=== PATIENT | female | born 1995 | race Caucasian/White ===

== ENCOUNTER 2017-12-05 06:00 | Day surgery (SDC) | payer BC ==
[2017-12-04 11:54] VITALS: BMI 32.9
[2017-12-05] MEDS ORDERED: Fentanyl 250 MCG/5 ML VIAL ONE (06:07)
[2017-12-05] MEDS ORDERED: Sodium Chloride 0.9% 10 ML ONE (06:17)
[2017-12-05] MEDS ORDERED: Bupivacaine HCl 0.5%/Epinephrine 1:200,000/PF 30 ml Vial ONE (06:17)
[2017-12-05] MEDS ORDERED: Thrombin 5000 UNITS/5 ML VIAL ONE (06:17)
[2017-12-05] MEDS ORDERED: CEFAZOLIN/Water 2 GM/20 ML SYRINGE ONE ×2 (06:49→16:10)
[2017-12-05] MEDS ORDERED: Midazolam HCl 2 mg/2 ml Vial ONE (06:54)
[2017-12-05 07:01] LABS: #Eosinphils 0.2 thou/uL (0.0-0.7); #Lymphocytes 2.3 thou/uL (1.20-3.40); #Monocytes 0.5 thou/uL (0.11-0.59); #Neutrophils 3.9 thou/uL (1.40-6.50); %Basophils 0.3 % (0.0-1.0); %Eosinophils 2.8 % (0.0-10.0); %Lymphocytes 33.7 % (21.0-51.0); %Monocytes 7.1 % (0.0-10.0); %Neutrophils 56.2 % (42.0-75.0); Hemoglobin 14.3 g/dL (12.0-16.0); Mean Corpuscular HGB CONC 31.2 g/dL (32.0-36.0); Mean Corpuscular Hemoglobin 28.7 pg (27.0-31.0); Mean Corpuscular Volume 91.9 fL (78.0-98.0); Mean Platelet Volume 7.5 fL (7.4-10.4); Platelet Count 212 thou/uL (130-400); RBC Distribution Width 11.9 % (11.5-14.5); Red Blood Cell (RBC) Count 4.97 mill/uL (4.20-5.40); White Blood Cell (WBC) Count 6.9 thou/uL (4.8-10.8)
[2017-12-05 07:09] LABS: INR-International Normal Ratio 0.9; PTT 29.6 SEC (22.9-36.1); Prothrombin Time 12.6 SEC (12.0-14.7)
[2017-12-05] MEDS ORDERED: Fentanyl 100 MCG/2 ML VIAL ONE ×3 (11:12→11:52)
--- NOTE | 2017-12-05 12:03 | OP ---
DATE OF PROCEDURE: 12/05/2017 SURGEON: Lucie Trivedi M.D. SEAM STEAMER: Halley Baez PA-C. PREOPERATIVE INDICATION: Treat pain, prevent neurological deterioration. PREOPERATIVE DIAGNOSES: Recurrent intervertebral disk disease at L4-L5 with left L5 radiculopathy, 3 prior lumbar surgeries. POSTOPERATIVE DIAGNOSES: Recurrent intervertebral disk disease at L4-L5 with left L5 radiculopathy, 3 prior lumbar surgeries. OPERATIVE PROCEDURE: Reopening lumbar incision, microsurgical dissection of scar tissue, repeat L4-5 laminectomy, medial facetectomy, foraminotomy, left-sided L4-5 microdiskectomy, operating microscope . PREOPERATIVE MEDICATIONS: Ancef 2 grams IV. DRAIN NUMBER: Zero. DRAIN TYPE: None. OPERATIVE DICTATION: The patient was brought to the operating room. General endotracheal anesthesia was induced. The patient was positioned prone on the operating table with her chest and hips suppor belén by gel-filled chest rolls. A lateral fluoro radiograph was used to confirm her previous incision could give us access to the L4-5 segments of the lumbosacral spine. The lumbar skin was sterilely p repped and draped. We reopened her lumbar incision with a 10 blade knife. We controlled bleeding wi th bipolar and monopolar cautery. We used monopolar cautery to dissect through subcutaneous tissues to the thoracodorsal fascia. We incised the fascia in the midline and we reflected paraspinal muscle s and scar tissue off the spinous process and lamina of L4 and the defect were L5 used to be. The sc ar tissue was dissected down to the L4-5 facet joints and reflected laterally and a self-retaining re tractor was placed. A lateral fluoro radiograph confirmed the levels upon which we were operating. We then used bone rongeurs and high speed drill to fashion a laminectomy at L4. We widened our matt ectomy defect with Kerrison rongeurs and brought the operative microscope in the field. Under microscopic magnification and using microsurgical techniques, we dissected scar tissue off the lateral confines of the spinal canal. There was significant synovium attached to the dura and scar t issue in the lateral recess at L4-5. A careful and meticulous dissection led us to identify the L5 n erve roots in the lateral recess and out the foramen. Under the microscope, we mobilized these nerve roots out of their scar tissue. We performed foraminotomies over the exiting nerve roots. We ensur ed that a U[place]ia ball probe could pass through the lateral recess and out the foramen with the L4 ner ve roots on both sides and then we turned our attention microdiskectomy. When we dissected out the l eft L5 nerve root we were able to mobilize it posteriorly and reached to the ventral aspect of the ne rve root. Small freshly herniated disk fragment was found. This was removed in a piecemeal fashion. There was more disk material medially. We used a pushing curet to reduce this disk material into t he disk space and sweep it laterally where it could be removed in a piecemeal fashion. I did this mu ltiple times until both the thecal sac and the L5 nerve root were no longer stretched on the left karl e. We irrigated copiously with bacitracin irrigation. We ensured that all the remaining disk was fi rmly adherent to the endplates. We infused local anesthetic in the paraspinal muscles. We treated t he wound with vancomycin powder. We closed the wound in anatomic layers. This was a clean case and no contamination.
[2017-12-05] MEDS ORDERED: tiZANidine HCl 4 MG TAB ONE (12:34)
[2017-12-05] MEDS ORDERED: Acetaminophen/Codeine 30-300mg Tablet ONE (13:38)
== END 2017-12-05 16:30 | disposition home or self-care (01) ==
LOC: SDC 06:00
PROVIDERS: ATTEND Neurological Surgery
PROC: 01NB0ZZ Release Lumbar Nerve, Open Approach (ICD-10-PCS; principal; 2017-12-05)
PROC: 0ST20ZZ Resection of Lumbar Vertebral Disc, Open Approach (ICD-10-PCS; principal; 2017-12-05)
DX: M51.16 Intervertebral disc disorders with radiculopathy, lumbar region (principal); Z79.899 Other long term (current) drug therapy; Z88.8 Allergy status to other drugs, medicaments and biological substances; Z91.048 Other nonmedicinal substance allergy status; Z98.1 Arthrodesis status; Z98.890 Other specified postprocedural states
CPT/HCPCS: 36415; 76001; 85025; 85610; 85730; 96374; 96375; 96376; A4216; J0670; J2250; J3010; J3370; J3490